=== PATIENT | male | born 1945 | race Caucasian/White ===

== ENCOUNTER 2025-04-05 13:59 | Inpatient (IN) | payer OTHER, MEDICARE ==
[~2025-04-05] VITALS: Ht 185.4 cm; Wt 103.2 kg
[2025-04-05] MEDS ORDERED: LIPITOR20 MG (14:27)
[2025-04-05] MEDS ORDERED: LISINOPRIL10 MG PO (14:27)
[2025-04-05] MEDS ORDERED: METFORMIN HCL1000 M1 PO (14:27)
[2025-04-05] MEDS ORDERED: KATERZIA1 MG/1 ML PO (14:27)
[2025-04-05] MEDS ORDERED: HYDROCHLOROTH12.5 MG PO (14:28)
[2025-04-05] MEDS ORDERED: LANTUS100 UNITS/ SUB-Q (14:28)
[2025-04-05] MEDS ORDERED: OZEMPIC1 MG/0.71 SQ (14:29)
[2025-04-05 14:37] LABS: BASOPHILS 0.3 % (0.2-1.2); EOSINOPHILS 3.2 % (0.8-7.0); HEMATOCRIT 36.6 % (40.1-51.0); HEMOGLOBIN 12.4 g/dL (13.7-17.5); LYMPHOCYTES 2.9 % (21.8-53.1); MCH 29.8 PG (25.7-32.2); MCHC 33.9 g/dL (32.3-36.5); MONOCYTES 3.9 % (5.3-12.2); NEUTROPHILS 89.2 % (34.0-67.9); PLATELET COUNT 253 K/uL (163-337); RBC 4.16 M/uL (4.63-6.08)
[2025-04-05 14:41] LABS: INR 1.25 (0.80-1.30)
[2025-04-05] MEDS ORDERED: SODIUM CHLORIDE 0.9% 1,000 ML IV PRN ×3 (14:45→20:15)
[2025-04-05 14:57] LABS: ALBUMIN 3.3 g/dL (3.4-5.0); ALBUMIN/GLOBULIN RATIO 0.87 (1.1-2.4); ALCOHOL, MEDICAL <3 ng/dL (<3); ALKALINE PHOSPHATASE 97 U/L (46-116); ALT (SGPT) 25 U/L (14-59); ANION GAP 16.2 (7-21); AST (SGOT) 20 U/L (15-37); BILIRUBIN, TOTAL 1.2 mg/dL (0.2-1.0); BUN/CREATININE RATIO 10.73 (6.0-28.6); CALCIUM 8.7 mg/dL (8.5-10.1); CARBON DIOXIDE 25 mmol/L (21-32); CHLORIDE 96 mmol/L (98-107); CREATININE, SERUM 2.05 mg/dL (0.70-1.30); GLOMERULAR FILTRATION RATE,EST 33 mL/min (>60); POTASSIUM 4.2 mmol/L (3.5-5.1); PROTEIN, TOTAL 7.1 g/dL (6.4-8.2); TSH, 3RD GENERATION 3.336 uIU/mL (0.358-3.740); UREA NITROGEN 22 mg/dL (7-18)
[2025-04-05 17:09] LABS: BILIRUBIN, URINE NEGATIVE (negative); BLOOD/HGB, URINE NEGATIVE (Negative); KETONE, URINE NEGATIVE (Negative); LEUK ESTERASE, URINE NEGATIVE (negative); NITRITE, URINE NEGATIVE (negative)
[2025-04-05 17:23] LABS: AMPHETAMINES, URINE NEGATIVE (NEGATIVE); BARBITURATES, URINE NEGATIVE (NEGATIVE); BENZODIAZEPINE, URINE NEGATIVE (NEGATIVE); BUPRENORPHINE, URINE NEGATIVE (NEGATIVE); CANNABINOID, URINE POSITIVE (NEGATIVE); COCAINE, URINE NEGATIVE (NEGATIVE); ECSTASY, URINE NEGATIVE (NEGATIVE); FENTANYL, URINE NEGATIVE (NEGATIVE); METHADONE, URINE NEGATIVE (NEGATIVE); OPIATES, URINE NEGATIVE (NEGATIVE); OXYCODONE, URINE NEGATIVE (NEGATIVE); PHENCYCLIDINE, URINE NEGATIVE (NEGATIVE)
[2025-04-05] MEDS ORDERED: ACETAMINOPHEN 500 MG TAB PO ONE (18:15)
[2025-04-05 18:37] LABS: ALBUMIN/GLOBULIN RATIO 0.91 (1.1-2.4); ANION GAP 11.9 (7-21); BILIRUBIN, TOTAL 0.9 mg/dL (0.2-1.0); BUN/CREATININE RATIO 12.65 (6.0-28.6); CREATININE, SERUM 1.66 mg/dL (0.70-1.30); POTASSIUM 3.9 mmol/L (3.5-5.1); PROTEIN, TOTAL 6.3 g/dL (6.4-8.2)
[2025-04-05] MEDS ORDERED: CIPROFLOXACIN 250 MG TAB PO ONE (20:00)
[2025-04-05] MEDS ORDERED: AMOXICILLIN/CLAVULANATE K 875 MG HOME.PACK PO ONE (20:00)
[2025-04-05] MEDS ORDERED: CIPROFLOXACIN 500 MG TAB PO ONE (20:15)
[2025-04-05] MEDS ORDERED: AMOXICILLIN/CLAVULANATE K 875 MG TAB PO ONE (20:15)
[2025-04-05] MEDS ORDERED: PIPERACILLIN/TAZOBACTAM 4.5 GM in SODIUM CHLORIDE 0.9% 100 ML IV ONE (20:15)
[2025-04-05] MEDS ORDERED: VANCOMYCIN HCL 1 GM in DEXTROSE 5% 250 ML IV ONE (20:15)
[2025-04-05 20:51] LABS: LACTIC ACID, BLOOD 1.5 mmol/L (0.4-2.0)
[2025-04-05] MEDS ORDERED: ACETAMINOPHEN 325 MG TAB PO PRN (21:15)
[2025-04-05] MEDS ORDERED: DEXTROSE 50% 50 ML SYR IV PRN ×2 (21:15)
[2025-04-05] MEDS ORDERED: DEXTROSE 5% 1,000 ML IV PRN (21:15)
[2025-04-05] MEDS ORDERED: GLUCAGON,HUMAN RECOMBINANT 1 MG/ML VIAL SUB-Q PRN (21:15)
[2025-04-05] MEDS ORDERED: ondansetron HCL 4 MG/2 ML VIAL IV PRN (21:15)
[2025-04-05] MEDS ORDERED: SODIUM CHLORIDE 0.9% 1,000 ML IV SCH ×2 (21:15→22:00)
[2025-04-05] MEDS ORDERED: IBLOOD GLUCOSE TEST STRIP 1 EA TEST XX PRN (21:15)
--- NOTE | 2025-04-05 21:55 | EKG ---
[facility] [address] [place] [address] Signed Normal sinus rhythm with sinus arrhythmia Normal ECG No previous ECGs available Confirmed by Pooja Nugent MD () on 04/05/2025 9:55:18 PM Electronically Signed By: POOJA NUGENT MD 04/05/[id number] PATIENT NAME: ELKE HATCH Electrocardiogram DATE OF : 47 PHYSICIAN: POOJA NUGENT MD REPORT #: [id number] REPORT IS CONFIDENTIAL AND NOT TO BE RELEASED WITHOUT AUTHORIZATION
[2025-04-05] MEDS ORDERED: NOREPINEPHRINE BITARTRATE 250 ML IV SCH (22:00)
[2025-04-05 22:02] LABS: LACTIC ACID, BLOOD 1.5 mmol/L (0.4-2.0)
--- NOTE | 2025-04-05 23:40 | NUR ---
pt from er via [facility] with mian rn, pt stood at bedside and void using urinal 300 ml yellow urine. steady on feet. then trsf. to bed. vss and iv norepi adjusted with 2 rns verified. ivx2 flushes well. 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 foot xray shows infection. iv abx in er and again this shift. pt educated on plan of care as he was worried he was in ccu. pt oriented to room and call light, alert and oriented. call light in reach. bs checked on admit of 171, pt reports just eating 1/[address] from er. pt denies any pain. skin check x2 rns wnl except r foot/toe as described.
[2025-04-05 23:47] VITALS: BP 120/85
[2025-04-05 23:58] VITALS: BP 120/85
[2025-04-06] VITALS (31 sets, daily range): BP systolic 86–140; BP diastolic 1–79
[2025-04-06] MEDS ORDERED: PIPERACILLIN/TAZOBACTAM 4.5 GM in SODIUM CHLORIDE 0.9% 100 ML IV SCH (01:00)
--- NOTE | 2025-04-06 01:00 | NUR ---
pt using urinal in bed, denies needs, call light in reach.
--- NOTE | 2025-04-06 04:00 | NUR ---
pt resting in bed, moves around on own, call light in reach, levophed drip continues unchanged. pt voids in urinal qs. denies needs.
[2025-04-06 05:16] LABS: BASOPHILS 0.3 % (0.2-1.2); EOSINOPHILS 5.4 % (0.8-7.0); HEMOGLOBIN 10.7 g/dL (13.7-17.5); LYMPHOCYTES 2.7 % (21.8-53.1); MCH 29.7 PG (25.7-32.2); MCHC 33.4 g/dL (32.3-36.5); MCV 88.9 fL (79.0-92.2); MONOCYTES 2.9 % (5.3-12.2); NEUTROPHILS 88.2 % (34.0-67.9); PLATELET COUNT 210 K/uL (163-337)
[2025-04-06 05:33] LABS: ALBUMIN 2.5 g/dL (3.4-5.0); ALBUMIN/GLOBULIN RATIO 0.76 (1.1-2.4); BUN/CREATININE RATIO 11.88 (6.0-28.6); CALCIUM 7.5 mg/dL (8.5-10.1); CREATININE, SERUM 1.43 mg/dL (0.70-1.30); MAGNESIUM 1.3 mg/dL (1.8-2.4); PHOSPHORUS, INORGANIC 2.5 mg/dL (2.5-4.9); PROTEIN, TOTAL 5.8 g/dL (6.4-8.2)
--- NOTE | 2025-04-06 06:40 | NUR ---
pt resting in bed with eyes closed. call light in reach.
[2025-04-06] MEDS ORDERED: MAGNESIUM SULFATE 2 GM/50 ML BAG IV SCH (07:45)
[2025-04-06] MEDS ORDERED: INSULIN LISPRO 100 UNIT/ML ML SUB-Q SCH (08:00)
[2025-04-06] MEDS ORDERED: IBLOOD GLUCOSE TEST STRIP 1 EA TEST VI SCH (08:00)
--- NOTE | 2025-04-06 08:49 | NUR ---
PATIENT AWAKE AND ALERT THIS MORNING, SITS ON SIDE OF BED TO EAT BREAKFAST. PT REPORTS FEELING WEAK OVERALL WHICH IS NOT HIS NORMAL SELF. PT REPORTS RECENTLY HAVING PINS REMOVED FROM RIGHT TOE AMPUTATION. AFEBRILE THIS AM. PT ON LEVOPHED AT 1.3 MCG/MIN AND THIS IS TITRATED OFF AROUND 0830. BP HOLDING WITH A MAP >65 THUS FAR AND WILL MONITOR. IV ABX STARTED-ZOSYN AND IV MAG BEING GIVEN. PT ABLE TO EAT SOME BREAKFAST. PT REPORTS HIS SHOULD BE COMING IN THIS AM. THEY ARE CURRENTLY TRAVELING BACK TO [place] FROM A TRIP THEY TOOK TO [place]. [facility] [place] [facility]. TRIPLE LUMEN RIGHT IJ FLUSHING WELL AND ASPIRATING BLOOD IN ALL LUMENS. ALL QUESTIONS ANSWERED BEST POSSIBLE. CALL LIGHT WITHIN REACH. PT NOW RESTING AFTER BREAKFAST.
[2025-04-06] MEDS ORDERED: DAPTOmycin 500 MG/10 ML VIAL IV SCH (09:00)
[2025-04-06] MEDS ORDERED: ENOXAPARIN SODIUM 40 MG/0.4 ML SYR SUB-Q SCH (09:00)
--- NOTE | 2025-04-06 09:47 | NUR ---
PATIENT'S WILLIE ARRIVES AND ASKING FOR AN UPDATE AND THIS RN GIVES UPDATE BEST POSSIBLE. PT REMAINS OFF LEVOPHED AT THIS TIME AND LAST BP 107/65 (78). HR IN THE 70s. PT DENIES PAIN OR DISCOMORT AT THIS TIME. WILL CONTINUE TO MONITOR.
--- NOTE | 2025-04-06 10:00 | NUR ---
DR. NUGENT IN ROOM AT THIS TIME AND DISCUSSING WITH PATIENT AND PLAN OF CARE.
[2025-04-06] MEDS ORDERED: LISINOPRIL20 MG PO (10:51)
[2025-04-06] MEDS ORDERED: SIMVASTATIN40 MG PO (10:51)
[2025-04-06] MEDS ORDERED: METFORMIN HCL1000 MG PO (10:52)
[2025-04-06] MEDS ORDERED: AMLODIPINE BESYL5 MG PO (10:55)
[2025-04-06] MEDS ORDERED: PHARMACY RENAL DOSE ADJUSTMENT 1 DOSE MISC PO SCH (12:00)
[2025-04-06] MEDS ORDERED: ADULT LOW DOSE81 MG PO (13:07)
[2025-04-06] MEDS ORDERED: OMEGA 3 FISH O1 EACH PO (13:08)
--- NOTE | 2025-04-06 13:09 | NUR ---
medications reconciled using pharmacy records, viewing RX vials and patient interview
--- NOTE | 2025-04-06 18:22 | NUR ---
AFTER PATIENT FINISHED HIS DINNER TRAY, HE NOTED THAT IT LOOKED LIKE HE HAD SPILT SOME FOOD ON HIS RIGHT FOOT AND ASKED THIS RN TO LOOK AT IT. IT WAS NOTED THAT PATIENT HAS A FAIR AMOUNT OF PURULENT PINKISH FLUID NOW DRAINING FROM A SPONTANEOUS DRAINAGE SPOT ON THE TOP OF HIS 3RD TOE RIGHT FOOT. DR. NUGENT NOTIFIED OF THIS AND HE COMES TO SEE PATIENT AND DISCUSSES PLANS MOVING FORWARD. DR. [facility] WAS CONSULTED AND WILL COME SEE PATIENT. ATTEMPT MADE TO CONTACT [facility] IN [place], [place] FOR POTENTIAL TRANSFER BUT THEY INFORMED OUR STENOGRAPHIC COURT REPORTER THAT THEY ARE NOT A 24 HOUR TRANSFER FACILITY AND WILL NOT BE BACK IN UNTIL TUESDAY AFTER THE HOLIDAY WEEKEND. SWAB WAS SENT FROM PATIENT'S DRAINING TOE FOR AEROBIC/ANAEROBIC CULTURE AND GRAM STAIN. PT UPDATING HIS WILLIE ON THE PHONE OF THESE FINDINGS.
--- NOTE | 2025-04-06 20:05 | NUR ---
PT AMB TO BR WITH ASSIST OF PAYROLL AUDITOR, BM NOTED, BACK TO BED AND ON PHONE WITH . PT ALERT AND ORIENTED. DENIES NEEDS AND CALL LIGHT IN REACH.
--- NOTE | 2025-04-06 20:55 | NUR ---
PATIENT IN BED AT THIS TIME. HYDRAULIC PILE HAMMER OPERATOR ASSISTED PATIENT TO BATHROOM AND THEN BACK TO BED. HYDRAULIC PILE HAMMER OPERATOR PRIVDED PATIENT WITH WARM WASHCLOTH. CALL LIGHT WITHIN REACH, NO FURTHER NEEDS AT THIS TIME.
--- NOTE | 2025-04-06 22:15 | NUR ---
pt made aware that he is moving to [place]. report given to ms rn, all pt belongings moved, pt trsf via bed, agreeable. rn wished him well in his recovery. ms rn and children's service supervisor trsf pt.
--- NOTE | 2025-04-06 22:15 | NUR ---
REPORT RECIEVED FROM HERRERA MILLS. PATIENT TRANSFERED TO ROOM 123. VITAL SIGNS TAKEN AND ARE STABLE. PATIENT WITHOUT FURTHER NEEDS AT THIS TIME. CALL LIGHT AND PERSONAL BELONGINGS ARE WITHIN REACH.
--- NOTE | 2025-04-06 23:22 | NUR ---
IV FLUID ORDERS D/C'D. PATIENT IJ LINE FLUSHED WITH 10ML OF NS AND IS SALINE LOCKED, DRESSING IS INTACT. PATIENT WITHOUT FURTHER NEEDS AT THIS TIME. CALL LIGHT AND PERSONAL BELONGINGS ARE WITHIN REACH.
[2025-04-07] VITALS (8 sets, daily range): BP systolic 103–137; BP diastolic 60–84
--- NOTE | 2025-04-07 01:30 | NUR ---
PATIENT MEDICATED PER EMAR. PATIENT TEMPERATURE TAKEN AND WAS 97.9. URINAL EMPTIED AT THIS TIME. PATIENT WITHOUT FURTHER NEEDS AT THIS TIME. CALL LIGHT AND PERSONAL BELONGINGS ARE WITHIN REACH.
--- NOTE | 2025-04-07 04:38 | NUR ---
PATIENT RESTING IN BED ON HIS BACK WITH HIS EYES CLOSED. EVEN AND UNLABORED RESPIRATIONS NOTED. CALL LIGHT AND PERSONAL BELONGINGS ARE WITHIN REACH.
[2025-04-07 06:33] LABS: BASOPHILS 0.2 % (0.2-1.2); EOSINOPHILS 9.2 % (0.8-7.0); HEMATOCRIT 30.3 % (40.1-51.0); HEMOGLOBIN 10.4 g/dL (13.7-17.5); LYMPHOCYTES 8.8 % (21.8-53.1); MCH 30.2 PG (25.7-32.2); MCHC 34.3 g/dL (32.3-36.5); MCV 88.1 fL (79.0-92.2); MONOCYTES 4.4 % (5.3-12.2); NEUTROPHILS 77.1 % (34.0-67.9); PLATELET COUNT 188 K/uL (163-337); RBC 3.44 M/uL (4.63-6.08)
--- NOTE | 2025-04-07 06:37 | NUR ---
PATIENT RIGHT FOOT TOE DRESSING CAME OFF WHILE PATIENT WAS SLEEPING. NEW DRESSING CONSISTING OF GAUZE AND COBAN APPLIED AT THIS TIME.
[2025-04-07 06:47] LABS: ALBUMIN 2.4 g/dL (3.4-5.0); ALBUMIN/GLOBULIN RATIO 0.69 (1.1-2.4); ANION GAP 12.5 (7-21); BILIRUBIN, TOTAL 0.7 mg/dL (0.2-1.0); BUN/CREATININE RATIO 12.5 (6.0-28.6); CALCIUM 8.1 mg/dL (8.5-10.1); CREATININE, SERUM 1.12 mg/dL (0.70-1.30); POTASSIUM 3.5 mmol/L (3.5-5.1); PROTEIN, TOTAL 5.9 g/dL (6.4-8.2)
--- NOTE | 2025-04-07 09:59 | NUR ---
PT RESTING IN BED, WATCHING TV PT REPORTED NO DIZZINESS OR PAIN GOT PT FRESH ICE WATER CALL LIGHT WITHIN REACH, BED LOWERED, RAILS UP PT NEEDED NOTHING ELSE AT THIS TIME
--- NOTE | 2025-04-07 10:14 | NUR ---
Patient is awake, alert and oriented x4, no distress. Patient reports he is feeling better this morning. Pt denies pain at this time. Dressing to right second and third toes covered with gauze-cdi. IV abx infusing per order. Patient denies needs at this time. Personal supplies and call light within reach.
--- NOTE | 2025-04-07 12:27 | NUR ---
Patient in bed watching tv, no acute distress. Patient tolerated 100% of his lunch. Good po intake noted. Patient denies distress and or needs, call light within reach.
--- NOTE | 2025-04-07 14:32 | NUR ---
PT LAYING IN BED WATCHING TV PT REPORTED NO DIZZINESS OR PAIN AT THIS TIME PT ASKED IF THE DR WAS GOING TO LOOK AT HIS RT BIG TOE, THE BANDAGE CAME OFF THIS MORNING AND A NURSE COVERED IT BUT THE PT WANTED THE DR TO LOOK AT IT- IT IS INFECTED CURRENTLY CALL LIGHT WITHIN REACH PUSHPA GREEN REPORTED TO THE PT'S NURSE THE PT WANTING TO SEE THE DR REGARDING HIS RT BIG TOE
--- NOTE | 2025-04-07 14:52 | NUR ---
Patient resting in bed watching tv, no distress. Dressing to right foot is cdi. Patient denies pain. No needs, personal supplies and call light within reach.
--- NOTE | 2025-04-07 18:28 | NUR ---
Patient in bed watching tv, no distress. IV abx infusing per order. Patient has no acute distress. Personal supplies and call light within reach.
--- NOTE | 2025-04-07 18:54 | NUR ---
GOT PT FRESH ICE WATER, CALL LIGHT WITHIN REACH PUSHPA GREEN GAVE PT WARM WASH CLOTH TO CLEAN HIS FACE AND HANDS
--- NOTE | 2025-04-07 19:10 | NUR ---
REPORT RECEIVED FROM HERRERA HUERTA. PATIENT RESTING IN BED ON HIS BACK WITH HIS EYES CLOSED. EVEN AND UNLABORED RESPIRATIONS NOTED. CALL LIGHT AND PERSONAL BELONGINGS ARE WITHIN REACH.
--- NOTE | 2025-04-07 20:30 | NUR ---
PATIENT RESTING IN BED ON HIS BACK WITH HIS EYES CLOSED. EVEN AND UNLABORED RESPIRATIONS NOTED. CALL LIGHT AND PERSONAL BELONGINGS ARE WITHIN REACH.
--- NOTE | 2025-04-07 21:53 | NUR ---
PATIENT ASSESSMENT COMPLETED. PATIENT WITHOUT FURTHER NEEDS AT THIS TIME. CALL LIGHT AND PERSONAL BELONGNIGS ARE WITHIN REACH.
--- NOTE | 2025-04-07 23:09 | NUR ---
PATIENT RESTING IN BED ON HIS LEFT SIDE WITH HIS EYES CLOSED. EVEN AND UNLABORED RESPIRATIONS NOTED. CALL LIGHT AND PERSONAL BELONGINGS ARE WITHIN REACH.
[2025-04-08] VITALS (8 sets, daily range): BP systolic 113–129; BP diastolic 63–77
--- NOTE | 2025-04-08 00:12 | NUR ---
PATIENT SITTING UP IN BED WATCHING TV. URINAL EMPTIED AT THIS TIME. PATIENT WITHOUT FURTHER NEEDS. CALL LIGHT AND PERSONAL BELONGINGS ARE WITHIN REACH.
--- NOTE | 2025-04-08 00:38 | NUR ---
IV ABX INFUSING INTO RIGHT WRIST IV. PATIENT PHONE PLUGGED IN PER PATIENT REQUEST. PATIENT WITHOUT FURHTER NEEDS AT THIS TIME. CALL LIGHT AND PERSONAL BELONGINGS ARE WITHIN REACH.
--- NOTE | 2025-04-08 01:49 | NUR ---
PATIENT RESTING IN BED ON HIS RIGHT SIDE WITH HIS EYES CLOSED. EVEN AND UNLABORED RESPIRATIONS NOTED. CALL LIGHT AND PERSONAL BELONGINGS ARE WITHIN REACH.
--- NOTE | 2025-04-08 03:47 | NUR ---
PATIENT RESTING IN BED ON HIS LEFT SIDE WITH HIS EYES CLOSED. EVEN AND UNLABORED RESPIRATIONS NOTED. CALL LIGHT AND PERSONAL BELONGINGS ARE WITHIN REACH.
--- NOTE | 2025-04-08 05:50 | NUR ---
IN ROOM FOR BLOOD DRAW. ALL THREE CLAVES CHANGED. LUMENS X3 ARE SALINE LOCKED. FRESH COFFEE PROVIDED PER PATIENT REQUEST. PATIENT STATES HE WOULD LIKE TO DO A SPONGE BATH AND TO WASH HIS HAIR AFTER HE FINISHES HIS COFFEE. PATIENT WITHOUT FURTHER NEEDS AT THIS TIME. CALL LIGHT AND PERSONAL BELONGINGS ARE WITHIN REACH.
[2025-04-08 05:59] LABS: BASOPHILS 0.3 % (0.2-1.2); HEMATOCRIT 30.7 % (40.1-51.0); HEMOGLOBIN 10.5 g/dL (13.7-17.5); LYMPHOCYTES 17.9 % (21.8-53.1); MCHC 34.2 g/dL (32.3-36.5); MCV 87.7 fL (79.0-92.2); MONOCYTES 6.5 % (5.3-12.2); NEUTROPHILS 61.5 % (34.0-67.9); PLATELET COUNT 205 K/uL (163-337)
[2025-04-08 06:14] LABS: ALBUMIN 2.3 g/dL (3.4-5.0); ALBUMIN/GLOBULIN RATIO 0.64 (1.1-2.4); ANION GAP 10.5 (7-21); BILIRUBIN, TOTAL 0.4 mg/dL (0.2-1.0); BUN/CREATININE RATIO 11.86 (6.0-28.6); CREATININE, SERUM 1.18 mg/dL (0.70-1.30); POTASSIUM 3.5 mmol/L (3.5-5.1); PROTEIN, TOTAL 5.9 g/dL (6.4-8.2)
--- NOTE | 2025-04-08 06:35 | NUR ---
PATIENT SET UP FOR SPONGE BATH. PATIENT AMBULATED TO BATHROOM TO GIVE HIMSELF A SPONGE BATH. FRESH LINEN PROVIDED, GARBAGE EMPTIED, BED SIDE TABLES CLEARED AND CLEANED.
--- NOTE | 2025-04-08 07:28 | NUR ---
RECIEVED SHIFT REPORT. PT AWAKE IN BED, ON THE PHONE. DENIES NEEDS AT THIS TIME. CALL LIGHT IN REACH.
--- NOTE | 2025-04-08 09:38 | NUR ---
MORNING ASSESSMENT COMPLETE. PT IS AWAKE IN BED, WAS WONDERING IF WOUND CARE WAS AROUND TO LOOK AT TOE AND BANDAGE. WILL DISCUSS WITH CHARGE NURSE. DRESSING IS CDI, NO NEW CHANGES. CALL LIGHT IN REACH
--- NOTE | 2025-04-08 12:25 | NUR ---
PT IS AWAKE IN BED, DENIES NEEDS. SET UP FOR LUNCH. CALL LIGHT IN REACH
--- NOTE | 2025-04-08 16:14 | NUR ---
RIGHT TOE DRESSING FELL OFF. WOUND CLEANSED AND IODOSORB DRESSING RE-APPLIED APPLIED WITH GAUZE AND SECURED WITH ELASTIC DRESSING. PT TOLERATED WELL.
--- NOTE | 2025-04-08 19:00 | NUR ---
REPORT RECEIVED FROM HERRERA DONG. PATIENT RESTING IN BED ON HIS BACK WITH HIS EYES CLOSED. EVEN AND UNLABORED RESPIRATIONS NOTED. CALL LIGHT AND PERSONAL BELONGINGS ARE WITHIN REACH.
--- NOTE | 2025-04-08 20:00 | NUR ---
PATIENT RESTING IN BED WATCHING TV. PATIENT WITHOUT ANY NEEDS AT THIS TIME. CALL LIGHT AND PERSONAL BELONGINGS ARE WITHIN REACH.
--- NOTE | 2025-04-08 21:18 | NUR ---
PATIENT MEDICATED PER EMAR. PATIENT ASSESSMENT COMPLETED AND DOCUMENTED. URINAL EMPTIED AND CHARTED. PATIENT WITHOUT FURTHER NEEDS AT THIS TIME. CALL LIGHT AND PERSONAL BELONGINGS ARE WITHIN REACH.
--- NOTE | 2025-04-08 22:50 | NUR ---
PATIENT RESTING IN BED ON HIS LEFT SIDE WITH HIS EYES CLOSED. EVEN AND UNLABORED RESPIRATIONS NOTED. CALL LIGHT AND PERSONAL BELONGINGS ARE WITHIN REACH.
--- NOTE | 2025-04-08 23:45 | NUR ---
PATIENT RESTING IN BED ON HIS LEFT SIDE WITH HIS EYES CLOSED. EVEN AND UNLABORED RESPIRATIONS NOTED. CALL LIGHT AND PERSONAL BELONGINGS ARE WITHIN REACH.
--- NOTE | 2025-04-09 00:42 | NUR ---
PATIENT RESTING IN BED ON HIS BACK WITH HIS EYES CLOSED. EVEN AND UNLABORED RESPIRATIONS NOTED. CALL LIGHT AND PERSONAL BELONGINGS ARE WITHIN REACH.
--- NOTE | 2025-04-09 01:10 | NUR ---
PATIENT MEDICATED PER EMAR. PATIENT REPORTING HIS BACK IS "ITCHY FROM LAYING HERE IN BED". THIS RN WASHED PATIENT'S BACK WITH A WARM WASHCLOTH, DRIED WITH TOWEL, AND APPLIED LOTION. PATIENT REPORTS FEELING BETTER. URINAL EMPTIED. PATIENT WITHOUT FURTHER NEEDS AT THIS TIME. CALL LIGHT AND PERSONAL BELONGINGS ARE WITHIN REACH.
--- NOTE | 2025-04-09 02:38 | NUR ---
PATIENT RESTING IN BED ON HIS RIGHT SIDE. EVEN AND UNLABORED RESPIRATIONS NOTED. CALL LIGHT AND PERSONAL BELONGINGS ARE WITHIN REACH. BED ALARM ACTIVATED, FALL MATS ARE IN PLACE. DOOR AND CURTAIN ARE OPEN FOR DIRECT VISUALIZATION.
--- NOTE | 2025-04-09 02:40 | NUR ---
PATIENT RESTING IN BED ON HIS RIGHT SIDE. EVEN AND UNLABORED RESPIRATIONS NOTED. CALL LIGHT AND PERSONAL BELONGINGS ARE WITHIN REACH. IV ABX INFUSING.
--- NOTE | 2025-04-09 03:36 | NUR ---
PATIENT RESTING IN BED ON HIS RIGHT SIDE. EVEN AND UNLABORED RESPIRATIONS NOTED. CALL LIGHT AND PERSONAL BELONGINGS ARE WITHIN REACH.
--- NOTE | 2025-04-09 04:38 | NUR ---
PATIENT RESTING IN BED ON HIS BACK WITH HIS EYES CLOSED. EVEN AND UNLABORED RESPIRATIONS NOTED. CALL LIGHT AND PERSONAL BELONGINGS ARE WITHIN REACH.
[2025-04-09 05:19] VITALS: BP 138/80
--- NOTE | 2025-04-09 05:20 | NUR ---
PATIENT IV ABX COMPLETED AT THIS TIME. IV FLUSHED WITH 10ML OF NS AND IS SALINE LOCKED. BLOOD DRAW FROM IJ COMPLETED, CLAVE REPLACED, LAB IN ROOM TO TAKE BLOOD SAMPLE TO LAB. FRESH COFFEE AND ICE WATER PROVIDED TO PATIENT. URINAL EMPTIED AND CHARTED. PATIENT WITHOUT FURTHER NEEDS AT THIS TIME. CALL LIGHT AND PERSONAL BELONGINGS ARE WITHIN REACH.
[2025-04-09 05:30] LABS: BASOPHILS 0.4 % (0.2-1.2); EOSINOPHILS 12.7 % (0.8-7.0); HEMATOCRIT 30.9 % (40.1-51.0); HEMOGLOBIN 10.4 g/dL (13.7-17.5); LYMPHOCYTES 22.7 % (21.8-53.1); MCH 29.6 PG (25.7-32.2); MCHC 33.7 g/dL (32.3-36.5); MONOCYTES 7.4 % (5.3-12.2); NEUTROPHILS 54.1 % (34.0-67.9); PLATELET COUNT 214 K/uL (163-337); RBC 3.51 M/uL (4.63-6.08)
[2025-04-09 05:51] LABS: ALBUMIN 2.4 g/dL (3.4-5.0); ALBUMIN/GLOBULIN RATIO 0.67 (1.1-2.4); ANION GAP 11.6 (7-21); BILIRUBIN, TOTAL 0.3 mg/dL (0.2-1.0); BUN/CREATININE RATIO 14.52 (6.0-28.6); CALCIUM 8.3 mg/dL (8.5-10.1); CREATININE, SERUM 1.17 mg/dL (0.70-1.30); MAGNESIUM 1.7 mg/dL (1.8-2.4); POTASSIUM 3.6 mmol/L (3.5-5.1)
--- NOTE | 2025-04-09 07:32 | NUR ---
MORNING REPORT RECIEVED FROM HERRERA TAPIA. PT LAYING IN BED WITH EYES CLOSED CHEST RISE EQUAL BILAT WITH CALL LIGHT IN REACH AT THIS TIME.
[2025-04-09] MEDS ORDERED: MAGNESIUM SULFATE 2 GM/50 ML BAG IV ONE (07:45)
--- NOTE | 2025-04-09 09:00 | NUR ---
Spoke with Adelfo. He lives in [place] . He uses the [facility]. Recently had toe surgery. He does not have any issues getting in or out of his home. He has a walking boot following surgery. His pcp is Jonna Alexander at the [facility] and he currently uses their wound clinic. was able to contact the [facility] and they will call Adelfo tomorrow with an appt. Pt denies any finanical or safety concerns. Will return home today after dc.
[2025-04-09 09:09] VITALS: BP 148/83
[2025-04-09] MEDS ORDERED: TRIMETHOPRIM/SULFAMETHOXAZOLE 1 EA TAB PO SCH (09:30)
[2025-04-09] MEDS ORDERED: SULFAMETHOXAZO1 EAC1 PO (09:34)
--- NOTE | 2025-04-09 09:35 | NUR ---
PT SITTING UP IN BED AWAKE AND ALERT AT THIS TIME, PT SPOKE WITH MD NUGENT AND WILL BE DC'D TODAY. PT IS AGREEABLE AND HAS NO FURTHER NEEDS AT THIS TIME CALL LIGHT IN REACH.
[2025-04-09] MEDS ORDERED: AMLODIPINE BESYLATE 5 MG TAB PO ONE (09:45)
[2025-04-09 10:00] VITALS: BP 153/85
[2025-04-09] MEDS ORDERED: diphenhydrAMINE 2% CREAM TUBE TOP PRN (10:15)
[2025-04-09] MEDS ORDERED: BANOPHEN ANTI-I28 GM TOP (10:15)
--- NOTE | 2025-04-09 10:59 | NUR ---
PT LAYING FLAT IN BED AT THIS TIME, PT IJ REMOVED AND PT TOLERATED WELL AT THIS TIME, PT HAS CALL LIGHT IN REACH AND HAS IN ROOM.
--- NOTE | 2025-04-09 11:00 | NUR ---
PT SITTING UP IN BED AT THIS TIME AND IS DRESSSED, PT HAS NO CURRENT CONCERNS AND IS READY FOR DC. PT CALL LIGHT IN REACH.
[2025-04-09 11:17] VITALS: BP 153/85
== END 2025-04-09 11:22 | disposition home or self-care (01) | DRG 871 ==
LOC: ED 13:59 → CCU 21:09 → MS 04-06 22:00
PROVIDERS: Emergency Medicine; ADMIT Family Medicine; ATTEND Family Medicine
PROC: 3E033XZ Introduction of Vasopressor into Peripheral Vein, Percutaneous Approach (ICD-10-PCS; principal; 2025-04-05)
PROC: 3E03329 Introduction of Other Anti-infective into Peripheral Vein, Percutaneous Approach (ICD-10-PCS; 2025-04-05)
DX: A41.9 Sepsis, unspecified organism (principal); R65.21 Severe sepsis with septic shock; N17.9 Acute kidney failure, unspecified; L03.115 Cellulitis of right lower limb; M86.171 Other acute osteomyelitis, right ankle and foot; D72.10 Eosinophilia, unspecified; E11.69 Type 2 diabetes mellitus with other specified complication; E83.42 Hypomagnesemia; Z79.84 Long term (current) use of oral hypoglycemic drugs; Z79.899 Other long term (current) drug therapy; Z79.4 Long term (current) use of insulin; Z98.890 Other specified postprocedural states; D64.9 Anemia, unspecified; F17.290 Nicotine dependence, other tobacco product, uncomplicated; Z89.411 Acquired absence of right great toe; E11.40 Type 2 diabetes mellitus with diabetic neuropathy, unspecified; E11.621 Type 2 diabetes mellitus with foot ulcer; L97.519 Non-pressure chronic ulcer of other part of right foot with unspecified severity
CPT/HCPCS: 36415; 36592; 70450; 71045; 73630; 74176; 80053; 80307; 81003; 82140; 83605; 83735; 84100; 84443; 84484; 85025; 85610; 87205; 93005; 93010; A9270; C1751; G0480; J0878; J1650; J1815; J2543; J3370; J3475; J7030; J7060